=== PATIENT | male | born 1950 | race Caucasian/White ===

== ENCOUNTER 2021-10-19 05:44 | Observation (INO) | payer MEDICARE, MEDICAID ==
[2021-10-12 16:13] LABS: ALBUMIN 3.8 G/DL (3.4-5.0); ALKALINE PHOSPHATASE 122 IU/L (46-116); BLOOD UREA NITROGEN 12 MG/DL (7-18); BUN/CREATININE RATIO 12.4 (5.4-32.0); CHLORIDE 107 MMOL/L (99-107); CREATININE 0.97 MG/DL (0.60-1.10); PRE OP ALT 26 U/L (30-65); PRE OP ANION GAP 10 (8-16); PRE OP AST 22 U/L (10-37); PRE OP BILIRUB, TOTAL 0.5 MG/DL (0.0-1.0); PRE OP GLUCOSE 102 MG/DL (70-104); PRE OP POTASSIUM 4.2 MMOL/L (3.4-5.1); PRE OP SODIUM 146 MMOL/L (135-145); TOTAL CARBON DIOXIDE 29.1 MMOL/L (24-32); TOTAL PROTEIN 7.5 G/DL (6.4-8.2); eGFR 76 ML/MIN
[2021-10-12 16:14] LABS: BASOPHILS % (AUTO) 0.5 % (0-1); EOSINOPHILS # (AUTO) 0.2 X10'3 (0-0.9); EOSINOPHILS % (AUTO) 2.3 % (0-6); LYMPHOCYTES # (AUTO) 1.8 X10'3 (1.1-4.8); MEAN CORPUSCULAR HEMOGLOBIN 32.9 PG (27.0-31.0); MEAN CORPUSCULAR HGB CONC 34.4 g/dL (33.0-36.5); MEAN CORPUSCULAR VOLUME 95.8 FL (78-98); MEAN PLATELET VOLUME 7.5 FL (7.4-10.4); MONOCYTES # (AUTO) 0.5 X10'3 (0-0.9); MONOCYTES % (AUTO) 7.6 % (2-12); NEUTROPHILS # (AUTO) 4.5 X10'3 (1.8-7.7); NEUTROPHILS % (AUTO) 63.6 % (42-75); PRE OP HEMATOCRIT 37.1 % (42.0-52.0); PRE OP HEMOGLOBIN 12.7 g/dL (14.0-17.9); PRE OP PLATELET COUNT 250 X10'3 (140-440); RED BLOOD COUNT 3.87 X10'6 (4.70-6.10); RED CELL DISTRIBUTION WIDTH 13.6 % (11.5-14.5)
[2021-10-19] VITALS (28 sets, daily range): BP systolic 111–143; BP diastolic 55–79
[~2021-10-19] VITALS: Ht 180.3 cm; Wt 86.8 kg
[~2021-10-19 05:44] MED LIST: CALC-855 PO; GABA300C PO; LEVO50TA8 PO; LEVO75TA7 PO; ceFOXitin 2GM-NS 100mL ADDvant 100 ML IV ONE; famotidine 20mg tablet PO ONE; ringers solution, lacted 1,000 ML IV SCH
[2021-10-19] MEDS ORDERED: heparin, porcine 5000 units/ml vial SQ ONE (06:00)
[2021-10-19] MEDS ORDERED: metroNIDAZOLE-Flagyl 500mg/NS 100ml IVPB IV ONE (06:00)
[2021-10-19] MEDS ORDERED: MALTODEXTRIN/FRUCTOSE 0.68 KCAL/ML LIQUID 296ML BOTTLE PO ONE (06:00)
--- NOTE | 2021-10-19 06:30 | NUR ---
Patient in room [facility]. I have received report from Melissa LIN and had the opportunity to ask questions and assume patient care.
[2021-10-19] MEDS ORDERED: BUPIVAcaine 0.5% inj/PF 0 ML ONE (06:37)
[2021-10-19] MEDS ORDERED: lidocaine 1%/epinephrine 1:100,000 inj. 50ml multi-dose vial ONE (06:46)
[2021-10-19] MEDS ORDERED: METRONIDAZOLE FLAGYL IV ONE (07:00)
[2021-10-19] MEDS ORDERED: [UNRECOGNIZED DRUG - OTHER] IV ONE (07:00)
[2021-10-19] MEDS ORDERED: INDOCYANINE GREEN 25 MG/10 ML VIAL IV ONE (07:01)
[2021-10-19] MEDS ORDERED: CefTRIAXone 2000mg inj ONE (07:01)
[2021-10-19] MEDS ORDERED: tobramycin 40mg/ml inj ONE (07:01)
[2021-10-19] MEDS ORDERED: heparin 10,000 units/1 ML INJ ONE (07:01)
[2021-10-19] MEDS ORDERED: midazolam 1 mg/ML 2ml injection ONE (07:24)
[2021-10-19] MEDS ORDERED: fentaNYL /PF 50mcg/ml 5ml ampule ONE (07:25)
[2021-10-19] MEDS ORDERED: sevoflurane 250ml liquid IH ONE (07:56)
[2021-10-19] MEDS ORDERED: labetalol 20mg/4ml (5mg/ml) syringe IV PRN (08:45)
[2021-10-19] MEDS ORDERED: acetaminophen 1,000mg/100ml IV 100 ML IV PRN (08:45)
[2021-10-19] MEDS ORDERED: ondansetron/PF 4mg/2ml inj IV PRN (08:45)
[2021-10-19] MEDS ORDERED: meperidine/PF 25mg/ml syringe IV PRN ×3 (08:45)
[2021-10-19] MEDS ORDERED: morphine 4 MG/ML inj SYRINge IV PRN (08:45)
[2021-10-19] MEDS ORDERED: proCHLORperazine 10 MG/2 ml inj IV PRN (08:45)
[2021-10-19] MEDS ORDERED: hydrALAZINE 20mg/ml inj. IV PRN (08:45)
[2021-10-19] MEDS ORDERED: ringers solution, lacted 1,000 ML IV SCH (08:45)
[2021-10-19] MEDS ORDERED: morphine 2 MG/ML inj. syringe IV PRN (08:45)
[2021-10-19] MEDS ORDERED: 0.9 % SODIUM CHLORIDE 10 ML VIAL ONE (08:50)
[2021-10-19] MEDS ORDERED: propofol inj 20 ML IV ONE (08:50)
[2021-10-19] MEDS ORDERED: LIDOcaine 2% (20mg/ml) 5ml vial ONE (08:50)
[2021-10-19] MEDS ORDERED: rocuronium 10mg/ml inj IV ONE (08:50)
[2021-10-19] MEDS ORDERED: ePHEDrine 50MG/ML INJ. ONE (08:51)
[2021-10-19] MEDS ORDERED: sugammadex 200mg/2ml injection IV ONE (08:56)
--- NOTE | 2021-10-19 09:02 | NUR ---
Received from OR via [facility], accompanied by Anesthesiologist DR DORMAN and report given by Anesthesiolgist. PATIENT SLEEPING. NOTNOTED PAIN. VSS. 20G LEFT HAND. LR RUNNING. COLOSTOMY BAD ON LEFT SIDE OF ABDOMEN. Addendum: 10/19/21 at 0923 by Isha Jacobsen RN Amended: Links added.
--- NOTE | 2021-10-19 09:11 | NUR ---
NOTED SCAR WITH LIQUID GLUE ON LEFT SIDE OF CHEST. CHEMO PORT RECENTLY REMOVED. Addendum: 10/19/21 at 0923 by Isha Jacobsen RN Amended: Links added.
[2021-10-19] MEDS ORDERED: HYDROcodone/acetaminophen 5mg/325mg tablet PO PRN (09:35)
--- NOTE | 2021-10-19 10:02 | NUR ---
PATIENT MEETS DISCHARGE CRITERIA. VSS. TRANSFERRED PATIENT TO SURGICAL FLOOR. NURSE AT BEDSIDE. SCDS TURNED ON. FLUIDS RUNNING. LET NURSE KNOW ABOUT ABRASION ON RIGHT ARM, PRESENT ON ADMISSION, SCABBED OVER NO ISSUES. BED LOWERED AND LOCKED, CALL LIGHT GIVEN, V/S STARTED. BELONGINGS TOTE SENT WITH PATIENT. Addendum: 10/19/21 at 1029 by Isha Jacobsen RN Amended: Links added.
--- NOTE | 2021-10-19 10:30 | NUR ---
Patient in room [facility]B. I have received report from Isha LIN and had the opportunity to ask questions and assume patient care.
[2021-10-19] MEDS: ceFOXitin inj 1,000 MG in normal saline 100ml IV soln 100 ML IV SCH (16:20)
[2021-10-19] MEDS ORDERED: levoTHYROXINE 25mcg tablet PO SCH (17:35)
--- NOTE | 2021-10-19 18:27 | NUR ---
Problems reprioritized. Patient report given, questions answered & plan of care reviewed with Eli LIN.
--- NOTE | 2021-10-19 18:48 | NUR ---
Patient in room [facility]. I have received report from RILEY MAK and had the opportunity to ask questions and assume patient care. Addendum: 10/19/21 at 1849 by Eli Madera RN Amended: Links added.
[2021-10-19] MEDS: gabapentin 300mg capsule PO SCH (20:07)
--- NOTE | 2021-10-19 21:20 | NUR ---
up with assist to ambulate in the [place]. ambulated x3 full laps tolerated well. c/o slight lower leg edema non pitting noted. denies c/o pain at this time.
[2021-10-20] VITALS: BP 131/69
[2021-10-20] MEDS: ceFOXitin inj 1,000 MG in normal saline 100ml IV soln 100 ML IV SCH (00:16)
[2021-10-20 04:00] VITALS: BP 127/68
--- NOTE | 2021-10-20 05:46 | NUR ---
labs drawn then skin care done py cleaned for mucoid drainage from the rectum. one small looking rbc noted, no active bleeding noted.
[2021-10-20 06:16] LABS: BASOPHILS % (AUTO) 0.4 % (0-1); EOSINOPHILS # (AUTO) 0.1 X10'3 (0-0.9); EOSINOPHILS % (AUTO) 2.1 % (0-6); HEMATOCRIT 35.5 % (42.0-52.0); HEMOGLOBIN 12.1 g/dl (14.0-17.9); LYMPHOCYTES # (AUTO) 1.6 X10'3 (1.1-4.8); LYMPHOCYTES % (AUTO) 25.5 % (21-51); MEAN CORPUSCULAR HEMOGLOBIN 32.4 PG (27.0-31.0); MEAN CORPUSCULAR VOLUME 95.2 FL (78-98); MEAN PLATELET VOLUME 7.8 FL (7.4-10.4); MONOCYTES # (AUTO) 0.5 X10'3 (0-0.9); MONOCYTES % (AUTO) 8.2 % (2-12); NEUTROPHILS % (AUTO) 63.8 % (42-75); PLATELET COUNT 202 X10'3 (140-440); RED BLOOD COUNT 3.73 X10'6 (4.70-6.10); WHITE BLOOD COUNT 6.3 X10'3 (4.5-11.0)
--- NOTE | 2021-10-20 06:22 | NUR ---
Problems reprioritized. Patient report given, questions answered & plan of care reviewed with RILEY GARCIA. Addendum: 10/20/21 at 0632 by Eli Madera RN Amended: Links added.
[2021-10-20 06:23] LABS: ALBUMIN 3.2 G/DL (3.4-5.0); ANION GAP 9 (8-16); BLOOD UREA NITROGEN 9 MG/DL (7-18); BUN/CREATININE RATIO 9.4 (5.4-32.0); CALCIUM 7.8 MG/DL (8.5-10.1); CHLORIDE 111 MMOL/L (99-107); CREATININE 0.96 MG/DL (0.60-1.10); GLUCOSE 103 MG/DL (70-104); POTASSIUM 3.9 MMOL/L (3.5-5.1); SODIUM 146 MMOL/L (135-145); TOTAL CARBON DIOXIDE 25.7 MMOL/L (24-32); eGFR 77 ML/MIN
[2021-10-20] MEDS: gabapentin 300mg capsule PO SCH (07:44)
[2021-10-20 09:03] VITALS: BP 123/74
--- NOTE | 2021-10-20 10:04 | NUR ---
DC INSTRUCTIONS GIVEN, QUESTIONS ANSWERED. IV REMOVED, NO COMPLICATIONS, BANDAGE APPLIED. PT DRESSED SELF AND GATHERED BELONGINGS. STUDENT ESCORTED PT OUT IN STABLE CONDITION.
[2021-10-21] MEDS ORDERED: levoTHYROXINE 75mcg tablet PO SCH (08:00)
== END 2021-10-20 10:03 | disposition home or self-care (01) ==
LOC: PAS IN 05:44 → INTOOBSV 05:44 → SUR 3N 10:04
PROVIDERS: ADMIT Colon & Rectal Surgery; ATTEND Colon & Rectal Surgery
DX: C20 Malignant neoplasm of rectum (principal); Z20.822 Contact with and (suspected) exposure to COVID-19; K62.4 Stenosis of anus and rectum; Z79.899 Other long term (current) drug therapy
CPT/HCPCS: 36415; 45303; 71046; 80048; 80053; 82948; 85025; 86885; 86900; 86901; 87081; 93005; 96365; 96366; 96367; 96372; C1758; G0378; J0694; J1644; J2250; J2704; J3010; J3490; J7030; J7120; U0003; U0005; A4338; A4355; A4402; A4618; A7000; J0696; J3260; S0020

== ENCOUNTER 2024-12-31 11:52 | Outpatient (CLI) | payer MEDICARE, MEDICAID ==
[~2024-12-31 11:52] MED LIST changes: +APIX5TAB3 PO; -CALC-855 PO; +TAMS-55 PO; -ceFOXitin 2GM-NS 100mL ADDvant 100 ML IV ONE; -famotidine 20mg tablet PO ONE; -ringers solution, lacted 1,000 ML IV SCH
--- NOTE | 2024-12-31 15:08 | RADIOLOGY REPORT ---
CT Chest without intravenous contrast INDICATION: PERSONAL HISTORY OF NICOTINE DEPENDENCE TECHNIQUE: Multidetector spiral CT of the chest was performed from the lung apices to the upper abdom en. Axial, coronal and sagittal multiplanar reformats were performed. Radiation Dose : 1. Chest: CTDI volume is 25 mGy. Dose-length product is 250 mGy*cm The dose indicators for CT are the volume Computed Tomography (CT) Dose Index (CTDIvol) and the Dose Length Product (DLP), and are measured in units of mGy and mGy-cm, respectively. These indicators are not patient dose, but values generated from the CT scanner acquisition factors. The report includes radiation exposure data for exposures received during this examination. Findings: Lower neck: normal Lungs: There Is a 5 mm pulmonary nodule right lower lobe. 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 Heart/Vascular Structures: normal Lymph Nodes: normal Pleura: normal Musculoskeletal: normal Body wall: normal Upper abdomen: normal IMPRESSION: There Is a 5 mm pulmonary nodule right lower lobe. 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 Lung-RADS Category 3: 6-month follow-up with LDCT
== END 2024-12-31 23:59 | disposition home or self-care (01) ==
LOC: RAD 11:52
PROVIDERS: ATTEND Family Medicine
DX: Z12.2 Encounter for screening for malignant neoplasm of respiratory organs (principal); Z87.891 Personal history of nicotine dependence; R91.1 Solitary pulmonary nodule; J43.9 Emphysema, unspecified
CPT/HCPCS: 71271